=== PATIENT | female | born 1980 | race African-American/Black ===

== ENCOUNTER 2019-04-24 18:31 | Emergency (ER) | payer OTHER ==
[~2019-04-24] VITALS: Ht 149.9 cm; Wt 152.0 kg
[~2019-04-24 18:31] MED LIST: ALEVE220 M1 PO; HYDROCHLOROTHIA25 M1 PO; HYDROCODON-ACE1 EAC7 PO; IBUPROFEN 600600 M1 PO; IBUPROFEN 800800 M1; IRON159 MG PO; IRON325 PO; KEFLEX500 MG PO; NAPROSYN500 MG PO; NORCO 5-325 TA1 EACH; NORCO 5-325 TA1 EACH PO; PHENTERMINE HCL30 MG; PRENATAL; PRENATAL COMPL1 EACH PO; ZOFRAN ODT4 MG PO
[2019-04-24] MEDS ORDERED: IBUPROFEN 800800 M1 PO (19:50)
[2019-04-24] MEDS ORDERED: NORFLEX100 MG PO (19:50)
[2019-04-24 20:15] VITALS: BP 156/109
== END 2019-04-24 20:16 | disposition home or self-care (01) ==
LOC: ER 18:31
DX: S93.491A Sprain of other ligament of right ankle, initial encounter (principal); S83.8X1A Sprain of other specified parts of right knee, initial encounter; K21.9 Gastro-esophageal reflux disease without esophagitis; I10 Essential (primary) hypertension; Z90.49 Acquired absence of other specified parts of digestive tract; Z86.2 Personal history of diseases of the blood and blood-forming organs and certain disorders involving the immune mechanism; Z98.890 Other specified postprocedural states; V89.2XXA Person injured in unspecified motor-vehicle accident, traffic, initial encounter; Y93.89 Activity, other specified; Y92.89 Other specified places as the place of occurrence of the external cause; Y99.8 Other external cause status

== ENCOUNTER 2019-07-30 16:52 | Emergency (ER) | payer OTHER ==
[~2019-07-30] VITALS: Ht 162.6 cm; Wt 152.0 kg
[2019-07-30 16:52] VITALS: BP 179/113
[~2019-07-30 16:52] MED LIST changes: +IBUPROFEN 800800 M1 PO; +NORFLEX100 MG PO
[2019-07-30] MEDS ORDERED: NAPROSYN500 MG PO (19:15)
[2019-07-30] MEDS ORDERED: NORFLEX100 MG PO (19:15)
== END 2019-07-30 19:32 | disposition home or self-care (01) ==
LOC: ER 16:52
DX: S39.012A Strain of muscle, fascia and tendon of lower back, initial encounter (principal); S46.812A Strain of other muscles, fascia and tendons at shoulder and upper arm level, left arm, initial encounter; S46.811A Strain of other muscles, fascia and tendons at shoulder and upper arm level, right arm, initial encounter; I10 Essential (primary) hypertension; K21.9 Gastro-esophageal reflux disease without esophagitis; Z86.2 Personal history of diseases of the blood and blood-forming organs and certain disorders involving the immune mechanism; Z90.49 Acquired absence of other specified parts of digestive tract; Z98.890 Other specified postprocedural states; V89.2XXA Person injured in unspecified motor-vehicle accident, traffic, initial encounter; Y92.89 Other specified places as the place of occurrence of the external cause; Y93.89 Activity, other specified; Y99.8 Other external cause status